=== PATIENT | male | born 1980 | race Caucasian/White ===

== ENCOUNTER 2020-06-29 22:09 | Emergency (ER) | payer MEDICAID, SELFPAY ==
[2020-06-29 22:11] VITALS: BP 144/96; PULSE 97; RESP 16; TEMP 37; O2SAT 97; BMI 23.6
--- NOTE | 2020-06-29 22:26 | HMH.EDSKAF ---
ED Disposition Clinical Impression: Dermatitis, Psychogenic formication, Dermatillomania in adult Disposition: Home, Self-Care Condition on Discharge: Good Instructions: DI for Itching Additional Instructions: use meds and call pcp for follo wup Prescriptions: diphenhydrAMINE HCL [Benadryl] 50 mg PO TID PRN #15 PRN Reason: Itching Permethrin [Elimite 5% cream 60gm tube] 60 gm TP ONCE #1 tube Transmission Status: Pending to [facility]/pharmacy #[id number] predniSONE [Prednisone 20mg Tab] 20 mg PO BID #10 tab Transmission Status: Pending to [facility]/pharmacy #[id number] Referrals: Humera Burks [Primary Care Provider] - - Critical Care Critical Care Time: No Attestation: On 06/29/20, the high probability of a clinically significant, sudden or life threatening deterioration of the following system(s) required my full and direct attention, intervention and personal management. The time I documented below is in addition to time spent performing reported procedures but includes the following listed in this critical care notation. Medical Decision Making - Medical Records Medical records reviewed: Yes: I reviewed the patient's medical records. - Saroj Inquiry Pt receiving controlled substance: No Vital Signs: 06/29/20 22:11 Temperature 98.6 F Temperature Source Oral Pulse Rate [Left Radial] 97 H Respiratory Rate 16 Blood Pressure [Right Arm] 144/96 H Blood Pressure Mean [Right Arm] 112 Blood Pressure Source [Right Arm] Automatic Cuff Blood Pressure Position [Right Arm] Sitting 02 Sat by Pulse Oximetry 97 Oxygen Delivery Method Room Air Skin/Abscess/FB HPI - General Chief complaint: Skin/Abscess/Foreign Body Stated complaint: rash Time Seen by Provider: 06/29/20 22:20 Mode of Arrival: Ambulatory Source of Information: Patient, Medical Record Limitations: No Limitations Description of Symptoms (Recalled from ER Triage Doc. by RN): pt c/o a rash on his arms and legs that has been there for a week. pt has a history of scabies. - History of Present Illness HPI narrative: diffuse rash with itching and feels like bugs - but concerned maybe scabies -has been there about 1 week MD complaint: rash Onset (ago): day(s) Tetanus up to date: unsure Location: generalized Severity: moderate Quality: pruritic Consistency: intermittent Context: none Associated symptoms: denies other symptoms Treatments prior to arrival: none - Related Data Previous Rx's Medication Instructions Recorded Permethrin [Elimite 5% cream 60gm 60 gm TP ONCE #1 tube 06/29/20 tube] diphenhydrAMINE HCL [Benadryl] 50 mg PO TID PRN #15 06/29/20 predniSONE [Prednisone 20mg 20 mg PO BID #10 tab 06/29/20 Tab] [facility] History - Hepatitis A Screen Drug use history?: No High risk sexual behaviors?: No History of sexually transmitted infection?: No Currently employed?: No Childcare worker?: No Do you have indoor plumbing?: Yes Do you have electricity?: Yes Attestation statement:: This patient has been screened for Hepatitis A risk factors. I have reviewed the patient's past medical history: Yes - Social History Smoking Status: Current every day smoker # Packs/Day (cigarettes): 1 Alcohol Intake: never Occupational Status: unemployed ROS Obtained: Yes All systems reviewed & no additional complaints - Constitutional Constitutional: Denies fever(s) - Eyes Eyes: Denies change in vision - ENT Ears, Nose, Mouth, and Throat: Denies sore throat - Cardiovascular Cardiovascular: Denies chest pain - Respiratory Respiratory: No shortness of breath - Gastrointestinal Gastrointestingal: Denies: abdominal pain - Genitourinary Male Genitourinary: Denies hematuria - Musculoskeletal Musculoskeletal: Denies joint pain - Integumentary/Breasts Skin/Breast: Reports as per HPI, Reports rash - Neurologic Neurologic: Denies confusion, Denies seizure-like activity Physical Exam - General General appearance: alert - Hea
[2020-06-29 22:48] VITALS: BP 142/88; PULSE 94; RESP 18; TEMP 37; O2SAT 98
== END 2020-06-29 22:50 | disposition home or self-care (01) ==
PROVIDERS: Emergency Provider Emergency Medicine; PCP Nurse Practitioner Family
DX: L30.9 Dermatitis, unspecified (principal); R20.2 Paresthesia of skin; F42.4 Excoriation (skin-picking) disorder; F17.210 Nicotine dependence, cigarettes, uncomplicated
CPT/HCPCS: 99281

== ENCOUNTER 2021-04-03 10:03 | Emergency (ER) | payer MEDICAID, SELFPAY ==
[2021-04-03] VITALS (7 sets, daily range): BP systolic 101–135; BP diastolic 59–101; PULSE 80–114; RESP 16; TEMP 37.8; O2SAT 96–100; BMI 22.8
--- NOTE | 2021-04-03 10:05 | XR_ITS ---
PROCEDURE: XR CHEST PORTABLE CLINICAL HISTORY: chest pain COMPARISON: No exams were available for comparison FINDINGS: The cardiomediastinal silhouette and pulmonary vascularity are within normal limits. The lungs are clear without infiltrates, suspicious nodules, or pleural effusions. Minimal upper thoracic curvature convex right IMPRESSION: No acute findings. Dictated by: Sarthak Patten MD 04/03/2021 10:56 Sarthak Patten MD in [place] 04/03/2021 10:56
--- NOTE | 2021-04-03 10:05 | ECG_ITS ---
APPROVED REPORT Exam: Resting ECG HR:100 bpm ECG Measurements Heart Rate 100 AXES PA 122 P 63 QRSd 86 QRS 48 QT 362 T 54 QTc 466 Conclusion Normal sinus rhythm Normal ECG Electronically signed by : Amanuel Beyer, 04/03/2021 17:43:44
--- NOTE | 2021-04-03 10:09 | HMH.EDGENADL ---
ED Disposition Clinical Impression: Atypical chest pain Disposition: Home, Self-Care Condition on Discharge: Fair Instructions: Opioid Use Disorder (Alternative Therapy), DI for Atypical Chest Pain Additional Instructions: You have been evaluated for atypical chest pain. Please follow-up with your primary care doctor in 1 to 2 days. Return to the emergency department for any new or worsening symptoms. Referrals: Provider,Referral, [Primary Care Provider] - Time of Disposition: 15:15 - Critical Care Critical Care Time: No Attestation: On , the high probability of a clinically significant, sudden or life threatening deterioration of the following system(s) required my full and direct attention, intervention and personal management. The time I documented below is in addition to time spent performing reported procedures but includes the following listed in this critical care notation. Medical Decision Making - Medical Records Medical records reviewed: Yes: I reviewed the patient's medical records. - Saroj Inquiry Pt receiving controlled substance: No Vital Signs: 04/03/21 10:06 04/03/21 10:45 04/03/21 10:49 Temperature 100.1 F H Temperature Source Oral Pulse Rate 100 H 102 H Pulse Rate [Left] 114 H Respiratory Rate 16 Blood Pressure 113/74 113/74 Blood Pressure [Right Arm] 135/101 H Blood Pressure Mean [Right Arm] 112 Blood Pressure Source Blood Pressure Position Blood Pressure Position [Right Arm] Sitting 02 Sat by Pulse Oximetry 100 97 97 Oxygen Delivery Method Room Air 04/03/21 11:00 04/03/21 11:30 04/03/21 12:30 Temperature Temperature Source Pulse Rate 98 H 95 H 92 H Pulse Rate [Left] Respiratory Rate Blood Pressure 114/69 110/59 L 127/76 Blood Pressure [Right Arm] Blood Pressure Mean [Right Arm] Blood Pressure Source Blood Pressure Position Blood Pressure Position [Right Arm] 02 Sat by Pulse Oximetry 97 97 96 Oxygen Delivery Method 04/03/21 15:25 Temperature 968.1 F H Temperature Source Oral Pulse Rate 80 Pulse Rate [Left] Respiratory Rate 16 Blood Pressure 101/73 L Blood Pressure [Right Arm] Blood Pressure Mean [Right Arm] Blood Pressure Source Automatic Cuff Blood Pressure Position Sitting Blood Pressure Position [Right Arm] 02 Sat by Pulse Oximetry Oxygen Delivery Method Room Air - Lab Data Lab Results 04/03/21 10:20: WBC 8.1, RBC 4.63, Hgb 12.4 L, Hct 38.7 L, MCV 83.6, MCH 26.9 L, MCHC 32.1, RDW 13.4, Plt Count 180, MPV 8.7, Neut % (Auto) 85.5 H, Lymph % (Auto) 8.6 L, [place] % (Auto) 4.3, Eos % (Auto) 1.3, Baso % (Auto) 0.3, Neut # (Auto) 6.9, Lymph # (Auto) 0.7, [place] # (Auto) 0.4, Eos # (Auto) 0.1, Baso # (Auto) 0.0, Total Counted 100, Neutrophils % (Manual) 78 H, Band Neutrophils % 4.0, Lymphocytes % (Manual) 11, Monocytes % (Manual) 7, Platelet Estimate Normal, Hypochromasia 1+, Macrocytosis 1+ 04/03/21 10:20: Sodium 135 L, Potassium 3.7, Chloride 100, Carbon Dioxide 24, Anion Gap 14.7, BUN 16, Creatinine 0.60 L, Estimated Creat Clear 161, Estimated GFR 151, Est GFR ( Amer) 182, Glucose 112 H, Calcium 9.2, Total Bilirubin 1.4 H, AST 33, ALT 32, Alkaline Phosphatase 56, Troponin I < 0.01, Total Protein 7.9, Albumin 4.6, Globulin 3.3 H, Albumin/Globulin Ratio 1.4 04/03/21 10:20: Lactate 1.3 04/03/21 10:20: D-Dimer 1.38 H 04/03/21 13:45: Troponin I < 0.01 Result diagrams: 04/03/21 10:20 04/03/21 10:20 Orders (Tests/Meds): ED MEDICATIONS Discontinued Medications Generic Name Dose Route Start Last Admin Trade Name Larryq PRN Reason Stop Dose Admin Aspirin 325 mg 04/03/21 10:06 04/03/21 10:15 Aspirin 325mg Tablet PO 04/03/21 10:07 325 mg ONCE ONE Administration Iopamidol 70 ml 04/03/21 12:09 04/03/21 12:11 Iopamidol-370 (76%);100ml Bottle IV 04/03/21 12:10 70 ml ONCE ONE Administration Sodium Chloride 50 ml 04/03/21 12:09 04/03/21 12:11 0.9 % Sodium Chloride 50 Ml Vial
[2021-04-03 10:43] LABS: Basophils % 0.3 % (0.1-2.0); Chloride 100 mmol/L (98-107); Eosinophils # 0.1 K/mm3 (0.0-0.4); Eosinophils % 1.3 % (0.1-12.0); Hematocrit 38.7 % (42.0-52.0); Hemoglobin 12.4 g/dL (14.1-18.0); Lymphocytes # 0.7 K/mm3 (0.7-4.5); Lymphocytes % 8.6 % (10-50); Mean Corpuscular HGB Conc 32.1 g/dL (31.8-35.4); Mean Corpuscular Hemoglobin 26.9 pg (27.0-31.2); Mean Corpuscular Volume 83.6 fl (80-94); Mean Platelet Volume 8.7 fl (7.4-10.4); Monocytes # 0.4 K/mm3 (0.1-1.0); Monocytes % 4.3 % (1.7-9.3); Neutrophils # 6.9 K/mm3 (1.8-7.8); Neutrophils % 85.5 % (37.0-80.0); Platelet Count 180 K/mm3 (142-424); Potassium 3.7 mmoL/L (3.5-5.1); Red Blood Count 4.63 M/mm3 (4.60-6.20); Red Cell Distribution Width 13.4 % (11.5-17.5); Sodium 135 mmol/L (136-145); White Blood Count 8.1 K/mm3 (4.8-10.8)
[2021-04-03 10:46] LABS: Alanine Aminotransferase 32 U/L (12-78); Albumin Level 4.6 g/dl (3.5-5.0); Albumin/Globulin Ratio 1.4 (1.1-1.8); Alkaline Phosphatase 56 U/L (38-126); Anion Gap 14.7 mEq/L (5-15); Aspartate Amino Transferase 33 U/L (17-59); Bilirubin,Total 1.4 mg/dl (0.2-1.3); Blood Urea Nitrogen 16 mg/dl (9-20); Carbon Dioxide 24 mmol/L (22.0-30.0); Creatinine Clearance Estimated 161 mL/min (50-200); Estimated Glomerular Filt Rate 151 ml/min (>60); GFR (African American) 182 ML/MIN (>60); Globulin 3.3 g/dL (1.3-3.2); Total Protein,Serum 7.9 g/dl (6.3-8.2)
[2021-04-03 10:47] LABS: Calcium 9.2 mg/dl (8.4-10.2); Glucose 112 mg/dl (74-100)
[2021-04-03 10:49] LABS: Lactic Acid 1.3 mmol/L (0.7-2.1)
[2021-04-03 10:53] LABS: MANUAL DIFFERENTIAL MANUAL DIFFERENTIAL (MANUAL DIFF)
[2021-04-03 10:59] LABS: D-Dimer 1.38 ug/mL (0.0-0.5)
[2021-04-03 11:08] LABS: Troponin I < 0.01 ng/ml (0.00-0.034)
--- NOTE | 2021-04-03 11:26 | CT_ITS ---
PROCEDURE: CT ANGIO CHEST CLINCIAL INDICATION: chest pain COMPARISON: CR XR CHEST PORTABLE from 04/03/2021 TECHNIQUE: IV Contrast: 70ML Isovue 370 Axial images obtained with sagittal and coronal reformats. All CT scans at the facility use one or more dose reduction, viz: automated exposure control, ma/kV adjustment per patient size (including targeted exams where dose is matched to indication, i.e. head), or iterative reconstruction technique. FINDINGS: HEART AND MEDIASTINAL STRUCTURES: Contrast enhancement of the pulmonary arteries is somewhat limited despite repeating the exam. No definite pulmonary embolus. No evidence of aortic aneurysm or dissection. LUNGS AND PLEURAL SPACES: 4mm noncalcified nodule is present in the right apex image 10 series 3. No lobar consolidation or collapse. Minimal atelectatic or fibrotic changes are present in the right lung base posteriorly. BONY STRUCTURES: No acute bony abnormalities apparent. 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 ADDITIONAL FINDINGS: Gynecomastia IMPRESSION: No acute finding. No convincing evidence of pulmonary embolus. Nonspecific 4 mm nodule right upper lobe. Dictated by: Sarthak Patten MD 04/03/2021 13:41 Sarthak Patten MD in [place] 04/03/2021 13:41
--- NOTE | 2021-04-03 11:54 | PC.NURSE ---
Pt to rad.
[2021-04-03 12:01] LABS: Lymphocytes % 11 % (10-50); Monocytes % 7 % (2-9); Neutrophils % 78 % (42-76); Total Cells Counted 100
[2021-04-03 12:02] LABS: Platelet Estimate Normal
[2021-04-03 12:03] LABS: Hypochromasia 1+; Macrocytosis 1+
--- NOTE | 2021-04-03 12:16 | PC.NURSE ---
patient returned from CT
--- NOTE | 2021-04-03 13:30 | PC.NURSE ---
Pt back to rad.
--- NOTE | 2021-04-03 13:37 | PC.NURSE ---
patient returned from CT
--- NOTE | 2021-04-03 13:39 | PC.NURSE ---
Pt returned from rad. Pt to restroom.
[2021-04-03 14:32] LABS: Troponin I < 0.01 ng/ml (0.00-0.034)
== END 2021-04-03 15:36 | disposition home or self-care (01) ==
PROVIDERS: Emergency Provider Emergency Medicine
DX: R07.89 Other chest pain (principal); R91.1 Solitary pulmonary nodule; F17.210 Nicotine dependence, cigarettes, uncomplicated; F19.11 Other psychoactive substance abuse, in remission; Z20.822 Contact with and (suspected) exposure to COVID-19
CPT/HCPCS: 36415; 71045; 71275; 80053; 83605; 84484; 85007; 85025; 85378; 87040; 87077; 87186; 93005; 96374; 99283; Q9967; U0003

== ENCOUNTER 2021-04-21 14:52 | Emergency (ER) | payer MEDICAID, SELFPAY ==
[2021-04-21 15:00] VITALS: BP 108/80; PULSE 70; RESP 20; TEMP 36.6; O2SAT 97; BMI 22.8
--- NOTE | 2021-04-21 15:35 | HMH.EDUTC ---
[facility] [place] Impression: COVID-19 virus test result unknown Disposition: Home, Self-Care Condition on Discharge: Good Instructions: COVID-19: Testing and Tracing, COVID-19 Viral Test Additional Instructions: No sign of a bacterial infection. Likely viral. Viruses can take 7-14 days to run their course. Nasal saline and bulb syringe or nose Tori to remove nasal drainage to help with nasal congestion. Hard to eat, drink, sleep with nasal congestion so important to keep this cleaned out. Monitor temp. Tylenol or Motrin as needed for pain or fever Encourage fluids, water, Gatorade, Powerade, Pedialyte if infant/toddler/child Warm salt water gargles Warm fluids Sore throat lozenges Sleep elevated Humidifier/vaporizer Your covid test has been sent to lab- self isolate until test results are known to be neg Follow-up immediately for new or worsening symptoms or no noticeable improvement over the next 48-72 hours. Referrals: Provider,Referral, MD [Primary Care Provider] - Forms: Work/School Release Time of Disposition: 15:39 Medical Decision Making - Saroj Inquiry Pt receiving controlled substance: No Vital Signs: 04/21/21 15:00 Temperature 97.8 F Temperature Source Oral Pulse Rate [Left Brachial] 70 Respiratory Rate 20 Blood Pressure [Left Arm] 108/80 L Blood Pressure Mean [Left Arm] 89 Blood Pressure Source [Left Arm] Automatic Cuff Blood Pressure Position [Left Arm] Sitting 02 Sat by Pulse Oximetry 97 Oxygen Delivery Method Room Air Orders (Tests/Meds): ORDERS Category Date Time Status Covid-19 Nasal PCR ([facility]) Routine Lab 04/21/21 15:35 [place] [facility] [place] - General Chief complaint: [facility] Stated complaint: sore throat,achey,headache,cold sweats Time Seen by Provider: 04/21/21 15:35 Mode of Arrival: Ambulatory Source of Information: Patient Limitations: No Limitations Description of Symptoms (Recalled from Triage Doc. by RN): PATIENT REQUESTING COVID TEST. C/O BODY ACHES, HEADACHE, SORE THROAT, FATIGUE, AND LOSS OF TASTE AND SMELL HEENT Symptoms (Recalled from RN notes): No Resp Symptoms (Recalled from RN notes): No Skin Symptoms (Recalled from RN notes): No MS Symptoms (Recalled from RN notes): Yes Functional Status (Recalled from RN notes): WNL - History of Present Illness Provider Complaint: 40 yr old male presents for cough,sorethroat, loss of taste and smell and chills for 2 days. - Related Data Previous Rx's Medication Instructions Recorded Permethrin [Elimite 5% cream 60gm 60 gm TP ONCE #1 tube 06/29/20 tube] diphenhydrAMINE HCL [Benadryl] 50 mg PO TID PRN #15 06/29/20 predniSONE [Prednisone 20mg 20 mg PO BID #10 tab 06/29/20 Tab] Allergies Allergy/AdvReac Type Severity Reaction Status Date / Time No Known Allergies Allergy Verified 06/29/20 22:26 - Worker's Comp Is this a Worker's Comp case?: No [facility] History - Hepatitis A Screen Drug use history?: No High risk sexual behaviors?: No History of sexually transmitted infection?: No Currently employed?: No Childcare worker?: No Do you have indoor plumbing?: Yes Do you have electricity?: Yes Attestation statement:: This patient has been screened for Hepatitis A risk factors. I have reviewed the patient's past medical history: Yes - Social History Smoking Status: Current every day smoker Tobacco Type: cigarettes # Packs/Day (cigarettes): 2 Alcohol Intake: never Substance Use Type: former substance user, IV drugs, other Occupational Status: other Household Members: family ROS Obtained: Yes Systems reviewed as appropriate & no additional complaints - Constitutional Constitutional: Reports system reviewed and no additional complaints, except as docu, Reports body ache, Reports chills, Denies fever(s) - Eyes Eyes: Reports system reviewed and no additional complaints, except as docu, Denies itchy eyes - ENT Ears, Nose, Mouth, and Throat: Reports system reviewe
[2021-04-21 15:40] VITALS: BP 108/80; PULSE 70; RESP 20; TEMP 36.6; O2SAT 97
== END 2021-04-21 15:46 | disposition home or self-care (01) ==
PROVIDERS: Emergency Provider Nurse Practitioner Family
DX: Z20.822 Contact with and (suspected) exposure to COVID-19 (principal); J02.9 Acute pharyngitis, unspecified; R43.9 Unspecified disturbances of smell and taste; F19.11 Other psychoactive substance abuse, in remission; F17.210 Nicotine dependence, cigarettes, uncomplicated
CPT/HCPCS: 99202; G0463; U0003

== ENCOUNTER 2021-06-11 00:31 | Emergency (ER) | payer MEDICAID, SELFPAY ==
[2021-06-11 00:31] VITALS: BP 156/97; PULSE 76; RESP 16; TEMP 36.6; O2SAT 99; BMI 32.9
--- NOTE | 2021-06-11 00:50 | HMH.EDMCLR ---
ED Disposition Clinical Impression: Medical clearance for incarceration Disposition: Home, Self-Care Condition on Discharge: Good Instructions: DI for Substance Use Disorder Additional Instructions: see pcp for follow up Referrals: Provider,Referral, [Primary Care Provider] - - Critical Care Critical Care Time: No Attestation: On 06/11/21, the high probability of a clinically significant, sudden or life threatening deterioration of the following system(s) required my full and direct attention, intervention and personal management. The time I documented below is in addition to time spent performing reported procedures but includes the following listed in this critical care notation. Medical Decision Making - Medical Records Medical records reviewed: Yes: I reviewed the patient's medical records. - Saroj Inquiry Pt receiving controlled substance: No Vital Signs: 06/11/21 00:31 Temperature 97.9 F Temperature Source Oral Pulse Rate [Right] 76 Respiratory Rate 16 Blood Pressure [Right Arm] 156/97 H Blood Pressure Mean [Right Arm] 116 02 Sat by Pulse Oximetry 99 Medical Clearance HPI - General Chief complaint: Medical Clearance Stated complaint: Medical Clearance Time Seen by Provider: 06/11/21 00:40 Mode of Arrival: Ambulatory Source of Information: Patient, Medical Record Limitations: No Limitations Description of Symptoms (Recalled from ER Triage Doc. by RN): pt is here for medical clerance. pt has no c/o - History of Present Illness HPI Narrative: pt w/o specific c/o MD complaint: medical clearance requested Reason for Medical Clearance: intoxication Place: home Alleged Intoxication: Yes Traumatic Symptoms: denies traumatic injury Associated Symptoms: denies other symptoms Treatments Prior to Arrival: none Home medications: Previous Rx's Medication Instructions Recorded Permethrin [Elimite 5% cream 60gm 60 gm TP ONCE #1 tube 06/29/20 tube] diphenhydrAMINE HCL [Benadryl] 50 mg PO TID PRN #15 06/29/20 predniSONE [Prednisone 20mg 20 mg PO BID #10 tab 06/29/20 Tab] Allergies/Adverse reactions: Allergies Allergy/AdvReac Type Severity Reaction Status Date / Time No Known Allergies Allergy Verified 06/29/20 22:26 [facility] History - Hepatitis A Screen Drug use history?: No High risk sexual behaviors?: No History of sexually transmitted infection?: No Currently employed?: No Childcare worker?: No Do you have indoor plumbing?: Yes Do you have electricity?: Yes Attestation statement:: This patient has been screened for Hepatitis A risk factors. I have reviewed the patient's past medical history: Yes - Social History Smoking Status: Current every day smoker Tobacco Type: cigarettes # Packs/Day (cigarettes): 1 Alcohol Intake: never Substance Use Type: former substance user, IV drugs, other Occupational Status: unemployed Household Members: family ROS Obtained: Yes All systems reviewed & no additional complaints - Constitutional Constitutional: Denies fever(s) - Eyes Eyes: Denies change in vision - ENT Ears, Nose, Mouth, and Throat: Denies sore throat - Cardiovascular Cardiovascular: Denies chest pain - Respiratory Respiratory: Denies shortness of breath - Gastrointestinal Gastrointestingal: Denies: abdominal pain - Genitourinary Male Genitourinary: Denies flank pain - Musculoskeletal Musculoskeletal: Denies joint pain - Integumentary/Breasts Skin/Breast: Denies rash - Neurologic Neurologic: Denies headache(s), Denies seizure-like activity Physical Exam - General General appearance: alert - Head Head exam: normocephalic - Eye Eye exam: Present: PERRL, EOMI - ENT ENT exam: Present: mucous membranes moist - Neck Neck exam: Present: trachea midline - Respiratory Respiratory exam: Present: normal lung sounds bilaterally. Absent: respiratory distress - Cardiovascular Cardiovascular exam: Present: regular rate
[2021-06-11 00:58] VITALS: BP 156/97; PULSE 76; RESP 16; TEMP 36.6; O2SAT 99
== END 2021-06-11 00:59 | disposition home or self-care (01) ==
PROVIDERS: Emergency Provider Emergency Medicine
DX: Z00.8 Encounter for other general examination (principal)
CPT/HCPCS: 99282